=== PATIENT | female | born 1950 | race Hispanic/Latino ===

== ENCOUNTER 2017-07-05 19:42 | Emergency (ER) | payer OTHER, MEDICARE ==
[~2017-07-05 19:42] MED LIST: ATOR10 PO; CALC-877 PO; FLUT16H NASAL; FURO40TA5 PO; HYDR-3421 PO; HYOS-14 PO; INSLAN SQ; ISOS40TA16 PO; LACT10SO PO; PROP20TA7 PO; RIFA500P3 MC; SPIR100T5 PO
[2017-07-05 20:02] LABS: BASOPHILS % (AUTO) 1.1 % (0.0-5.0); EOSINOPHILS % (AUTO) 4.6 % (0.0-8.0); HEMATOCRIT 29.3 % (36-48); LYMPHOCYTES % (AUTO) 11.4 % (21.0-51.0); MEAN CORPUSCULAR HEMOGLOBIN 28.6 pg (27.0-33.0); MEAN CORPUSCULAR HGB CONC 32.8 g/dL (32.0-36.0); MEAN CORPUSCULAR VOLUME 87.3 fL (79-99); MONOCYTES % (AUTO) 9.5 % (3.0-13.0); NEUTROPHILS % (AUTO) 73.4 % (40.0-77.0); PLATELET COUNT (AUTO) 111 K/uL (130-400); RED BLOOD CELL COUNT(AUTO) 3.36 MIL/uL (4.00-5.50); RED CELL DISTRIBUTION WIDTH 17.6 % (11.0-15.5); WHITE BLOOD COUNT (AUTO) 4.1 K/uL (4.8-10.8)
[2017-07-05 20:10] LABS: CREATININE 1.5 mg/dL (0.5-1.5); POTASSIUM 4.9 mmol/L (3.5-5.1)
[2017-07-05 20:13] LABS: BILIRUBIN,TOTAL 0.6 mg/dL (0.2-1.0); TOTAL PROTEIN, SERUM 6.3 g/dL (6.0-8.3)
[2017-07-05 20:42] LABS: CREATINE KINASE MB 0.7 ng/mL (0.5-3.6)
[2017-07-05 21:50] LABS: APPEARANCE,URINE Clear (CLEAR); BILIRUBIN,URINE Negative (NEGATIVE); COLOR,URINE Yellow (YELLOW); GLUCOSE, URINE (UA) Negative (NEGATIVE); KETONES,URINE Negative (NEGATIVE); LEUKOCYTE ESTERASE ,URINE Negative (NEGATIVE); NITRATE,URINE Positive (NEGATIVE); OCCULT BLOOD,URINE Negative (NEGATIVE); PROTEIN,URINE Trace (NEGATIVE); UROBILINOGEN,URINE 0.2 mg/dL (0.2-1.0)
[2017-07-05 21:59] LABS: BACTERIA,URINE Moderate /HPF (None Seen); RBC,URINE 0-1 /HPF (0-1); SQUAMOUS EPITHELIAL CELL,UR Few /HPF (0-2); YEAST,URINE BUDDING Rare /HPF (None Seen)
[2017-07-05] MEDS ORDERED: CEFTRIAXONE SODIUM 1 GM ONE (22:08)
[2017-08-24] MEDS ORDERED: CETI-101 PO (12:01)
[2017-08-24] MEDS ORDERED: FLUT1AER IH (12:01)
[2017-08-24] MEDS ORDERED: RAMI5CAP21 PO (12:01)
[2017-08-24] MEDS ORDERED: IRON50VI3 IJ (12:01)
[2017-08-24] MEDS ORDERED: PRED20TA3 PO (12:01)
== END 2017-07-05 22:28 | disposition home or self-care (01) ==
LOC: EDH 19:42
DX: N39.0 Urinary tract infection, site not specified (principal); K74.69 Other cirrhosis of liver; E11.9 Type 2 diabetes mellitus without complications; R18.8 Other ascites; I10 Essential (primary) hypertension; M19.90 Unspecified osteoarthritis, unspecified site; Z88.2 Allergy status to sulfonamides; Z91.041 Radiographic dye allergy status; Z88.8 Allergy status to other drugs, medicaments and biological substances
CPT/HCPCS: 36415; 76705; 80053; 81001; 82150; 82550; 82553; 83690; 84484; 85025; 87088; 87186; 93005; 96374; 99285; J0696

== ENCOUNTER → 2017-07-28 | Outpatient (CLI) | payer OTHER, MEDICARE ==
[~2017-07-28] MED LIST changes: +CETI-101 PO; +FLUT1AER IH; +IRON50VI3 IJ; +PRED20TA3 PO; +RAMI5CAP21 PO
[2017-08-01 14:30] LABS: ALPHA-1-ANTITRYPSIN 132 mg/dL (90-200)
== END | disposition home or self-care (01) ==
LOC: RAH 09:37
PROVIDERS: ATTEND Internal Medicine Gastroenterology
DX: K80.20 Calculus of gallbladder without cholecystitis without obstruction (principal); K74.60 Unspecified cirrhosis of liver; E87.5 Hyperkalemia; R94.5 Abnormal results of liver function studies
CPT/HCPCS: 36415; 76700; 82103; 82104; 84132; 86038; 86215; 86235; 86255; 93975

== ENCOUNTER 2017-09-21 09:46 | Emergency (ER) | payer OTHER, MEDICARE ==
[~2017-09-21 09:46] MED LIST changes: -ATOR10 PO; -ISOS40TA16 PO; -PROP20TA7 PO
[2017-09-21] MEDS ORDERED: SODIUM CHLORIDE 0.9% 1000ML 1,000 ML IV ONE (09:59)
[2017-09-21] MEDS ORDERED: ONDANSETRON HCL 4 MG/2 ML VIAL ONE (09:59)
[2017-09-21 10:06] LABS: BASOPHILS % (AUTO) 0.8 % (0.0-5.0); EOSINOPHILS % (AUTO) 4.1 % (0.0-8.0); HEMATOCRIT 28.6 % (36-48); LYMPHOCYTES % (AUTO) 10.4 % (21.0-51.0); MEAN CORPUSCULAR HEMOGLOBIN 29.5 pg (27.0-33.0); MEAN CORPUSCULAR HGB CONC 33.7 g/dL (32.0-36.0); MEAN CORPUSCULAR VOLUME 87.7 fL (79-99); MONOCYTES % (AUTO) 8.5 % (3.0-13.0); NEUTROPHILS % (AUTO) 76.2 % (40.0-77.0); PLATELET COUNT (AUTO) 94 K/uL (130-400); RED BLOOD CELL COUNT(AUTO) 3.27 MIL/uL (4.00-5.50); RED CELL DISTRIBUTION WIDTH 17.3 % (11.0-15.5)
[2017-09-21 10:13] LABS: CREATININE 1.3 mg/dL (0.5-1.5); POTASSIUM 4.9 mmol/L (3.5-5.1)
[2017-09-21 10:33] LABS: ALBUMIN 3.1 g/dL (3.5-5.0); BILIRUBIN,TOTAL 0.9 mg/dL (0.2-1.0); TOTAL PROTEIN, SERUM 6.1 g/dL (6.0-8.3)
[2017-09-21 10:35] LABS: INR 1.07 (0.85-1.15); PARTIAL THROMBOPLASTIN TIME 26.6 SEC (26.3-35.5); PROTHROMBIN TIME 11.2 SEC (9.6-11.6)
[2017-09-21 10:41] LABS: CREATINE KINASE MB 0.8 ng/mL (0.5-3.6); CREATINE KINASE, TOTAL 42 U/L (21-232); MYOGLOBIN 55 ng/mL (10-92); TROPONIN I < 0.04 ng/mL (0.00-0.06)
[2017-09-21 11:01] LABS: BAND NEUTROPHILS % (MANUAL) 1 % (0-2); BASOPHILS % (MANUAL) 3 % (0-2); EOSINOPHILS % (MANUAL) 6 % (1-6); LYMPHOCYTES % (MANUAL) 9 % (22-44); MAN.DIFF COMMENT-IMPRESSION MANUAL DIFFERENTIAL; MONOCYTES % (MANUAL) 1 % (2-9); SEGMENTED NEUTROPHILS % 80 % (40-70)
[2017-09-21 11:02] LABS: PLATELET MORPHOLOGY COMMENT DECREASED
[2017-09-21 11:43] LABS: APPEARANCE,URINE Clear (CLEAR); BILIRUBIN,URINE Negative (NEGATIVE); COLOR,URINE Yellow (YELLOW); GLUCOSE, URINE (UA) Negative (NEGATIVE); KETONES,URINE Negative (NEGATIVE); LEUKOCYTE ESTERASE ,URINE Negative (NEGATIVE); NITRATE,URINE Negative (NEGATIVE); OCCULT BLOOD,URINE Trace (NEGATIVE); PROTEIN,URINE POS 1+ (NEGATIVE); UROBILINOGEN,URINE 0.2 mg/dL (0.2-1.0)
[2017-09-21 11:58] LABS: RBC,URINE 0-1 /HPF (0-1)
[2017-09-21 11:59] LABS: BACTERIA,URINE Rare /HPF (None Seen); WBC,URINE 0-1 /HPF (0-1)
[2017-09-21 12:01] LABS: SQUAMOUS EPITHELIAL CELL,UR Few /HPF (0-2)
[2017-09-21] MEDS ORDERED: METOCLOPRAMIDE 10 MG/2 ML VIAL ONE (12:17)
== END 2017-09-21 13:22 | disposition home or self-care (01) ==
LOC: EDH 09:46
DX: R51 Headache (principal); E86.0 Dehydration; M19.90 Unspecified osteoarthritis, unspecified site; K74.60 Unspecified cirrhosis of liver; E11.9 Type 2 diabetes mellitus without complications; M79.7 Fibromyalgia; I10 Essential (primary) hypertension; Z88.2 Allergy status to sulfonamides; Z88.8 Allergy status to other drugs, medicaments and biological substances
CPT/HCPCS: 36415; 70450; 71045; 80053; 81001; 82140; 82550; 82553; 83874; 84484; 85025; 85610; 85730; 93005; 96361; 96374; 96375; 99285; J2405; J2765; J7030

== ENCOUNTER → 2018-11-30 | Outpatient (CLI) | payer OTHER, MEDICARE ==
[~2018-11-30] MED LIST changes: -RAMI5CAP21 PO; +RAMI5CAP66 PO
== END | disposition home or self-care (01) ==
LOC: OIH 14:54
PROVIDERS: ATTEND Internal Medicine
DX: M47.817 Spondylosis without myelopathy or radiculopathy, lumbosacral region (principal); G95.9 Disease of spinal cord, unspecified; M41.9 Scoliosis, unspecified
CPT/HCPCS: 72100

== ENCOUNTER 2019-01-14 14:58 | Observation (INO) | payer OTHER, MEDICARE ==
[~2019-01-14] VITALS: Ht 149.9 cm; Wt 79.0 kg
[2019-01-14] MEDS ORDERED: DIATR MEGLU/DIATRIZOATE SODIUM 30 ML BOTTLE ONE (15:49)
[2019-01-14] MEDS ORDERED: 1/2 NORMAL SALINE 1,000 ML IV ONE (15:57)
[2019-01-14 16:01] LABS: BASOPHILS % (AUTO) 0.8 % (0.0-5.0); EOSINOPHILS % (AUTO) 1.4 % (0.0-8.0); HEMATOCRIT 27.3 % (36-48); LYMPHOCYTES % (AUTO) 5.7 % (21.0-51.0); MEAN CORPUSCULAR HEMOGLOBIN 30.1 pg (27.0-33.0); MEAN CORPUSCULAR HGB CONC 33.4 g/dL (32.0-36.0); MEAN CORPUSCULAR VOLUME 90.1 fL (79-99); MONOCYTES % (AUTO) 1.7 % (3.0-13.0); NEUTROPHILS % (AUTO) 90.4 % (40.0-77.0); PLATELET COUNT (AUTO) 101 K/uL (130-400); RED BLOOD CELL COUNT(AUTO) 3.03 MIL/uL (4.00-5.50); RED CELL DISTRIBUTION WIDTH 19.5 % (11.0-15.5); WHITE BLOOD COUNT (AUTO) 2.2 K/uL (4.8-10.8)
[2019-01-14 16:16] LABS: CREATININE 2.3 mg/dL (0.5-1.5); POTASSIUM 5.5 mmol/L (3.5-5.1)
[2019-01-14 16:19] LABS: BILIRUBIN,TOTAL 0.8 mg/dL (0.2-1.0); TOTAL PROTEIN, SERUM 5.9 g/dL (6.0-8.3)
[2019-01-14 16:21] LABS: AMMONIA 44 umol/L (11-32); CREATINE KINASE, TOTAL 87 U/L (21-232); MYOGLOBIN 96 ng/mL (10-92); TROPONIN I < 0.04 ng/mL (0.00-0.06)
[2019-01-14 16:30] LABS: B-TYPE NATRIURETIC PEPTIDE 115 pg/mL (0-100)
[2019-01-14 16:40] VITALS: BP 160/81
--- NOTE | 2019-01-14 17:05 | NUR ---
DR KNOWLES PAGED DR KNOWLES PAGED REGARDING PT LABS LEVELS AND PRESCHEDULED PARACENTESIS FOR 01/15. PENDING CALL BACK
--- NOTE | 2019-01-14 17:13 | NUR ---
DR JOHNSON CONSULTED DR JOHNSON CONSULTED PER DR KNOWLES ORDER. STATED SHE WILL REVIEW CHART AND SEE PT TOMORROW
[2019-01-14 17:37] LABS: BAND NEUTROPHILS % (MANUAL) 6 % (0-2); LYMPHOCYTES % (MANUAL) 9 % (22-44); SEGMENTED NEUTROPHILS % 85 % (40-70)
[2019-01-14 17:38] LABS: MAN.DIFF COMMENT-IMPRESSION MANUAL DIFFERENTIAL
[2019-01-14 17:39] LABS: PLATELET MORPHOLOGY COMMENT SLIGHTLY DECREASED
[2019-01-14] MEDS: 1/2 NORMAL SALINE 1,000 ML IV SCH (18:15)
[2019-01-14] MEDS ORDERED: LIDOCAINE HCL-MPF 1% 2ML VIAL IV PRN (18:15)
[2019-01-14] MEDS ORDERED: POTASSIUM CHLORIDE 10% ELIXIR 20 MEQ/15 ML UDCUP PO PRN (18:15)
[2019-01-14] MEDS ORDERED: CLONIDINE HCL 0.1 MG TABLET PO PRN (18:15)
[2019-01-14] MEDS ORDERED: DiphenhydrAMINE HCL 50 MG/ML VIAL IV PRN (18:15)
[2019-01-14] MEDS ORDERED: GLUCAGON 1MG KIT 1 MG ML IM PRN (18:15)
[2019-01-14] MEDS ORDERED: DEXTROSE 50%-WATER 50 ML DISP.SYRIN IV PRN (18:15)
[2019-01-14] MEDS ORDERED: POTASSIUM CHLORIDE 20MEQ/100ML 100 ML IV PRN (18:15)
[2019-01-14 18:44] LABS: ERYTHROCYTE SEDIMENTATION RATE 14 MM/HR (0-30)
[2019-01-14] MEDS ORDERED: ZOSYN 3.375GM+NS 50ML 50 ML IV SCH (19:00)
[2019-01-14] MEDS ORDERED: VANCOMYCIN PROTOCOL PER PHARMACY IV SCH (19:15)
[2019-01-14] MEDS ORDERED: CALC3.8S NS (19:30)
[2019-01-14] MEDS ORDERED: CALC-28 PO (19:30)
[2019-01-14] MEDS ORDERED: FURO40TA5 PO (19:30)
[2019-01-14] MEDS ORDERED: ALEN70TA10 PO (19:30)
[2019-01-14] MEDS ORDERED: RAMI5CAP66 PO (19:30)
[2019-01-14] MEDS ORDERED: FLUT16H NASAL (19:30)
[2019-01-14] MEDS ORDERED: IBUP-2070 PO (19:30)
[2019-01-14] MEDS ORDERED: OMEP40CA13 PO (19:30)
[2019-01-14] MEDS ORDERED: RIFA550T PO (19:30)
[2019-01-14] MEDS ORDERED: ERGO500014 PO (19:30)
[2019-01-14] MEDS ORDERED: BENZ-51 PO (19:30)
[2019-01-14] MEDS ORDERED: CETI10TA57 PO (19:30)
[2019-01-14] MEDS ORDERED: SPIR50TA5 PO (19:30)
[2019-01-14] MEDS ORDERED: MONT10TA24 PO (19:30)
[2019-01-14 20:04] VITALS: BP 165/78
[2019-01-14] MEDS: LACTULOSE 20 GM/30 ML UDCUP PO SCH (21:03)
[2019-01-14] MEDS ORDERED: VANCOMYCIN 1GM+NS 250ML 250 ML IV ONE (23:00)
[2019-01-14 23:30] VITALS: BP 160/78
[2019-01-15 03:50] VITALS: BP 131/76
[2019-01-15 04:59] LABS: HEMATOCRIT 24.9 % (36-48); MEAN CORPUSCULAR HEMOGLOBIN 30.9 pg (27.0-33.0); MEAN CORPUSCULAR HGB CONC 34.1 g/dL (32.0-36.0); MEAN CORPUSCULAR VOLUME 90.8 fL (79-99); NUCLEATED RED BLOOD CELLS 0.1 % (0.0-0.19); PLATELET COUNT (AUTO) 85 K/uL (130-400); RED BLOOD CELL COUNT(AUTO) 2.74 MIL/uL (4.00-5.50); RED CELL DISTRIBUTION WIDTH 19.2 % (11.0-15.5); WHITE BLOOD COUNT (AUTO) 2.1 K/uL (4.8-10.8)
--- NOTE | 2019-01-15 06:00 | NUR ---
Dr. Grossman rounded: Seen and examined pt with the ff: orders: 1. Paracentesis via IR 2. Do Fluid test and cell count 3. 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 Pt. to see [facility] as an out-patient 5. 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 Reported to AM nurse accordingly.
[2019-01-15 06:05] LABS: ALBUMIN 2.9 g/dL (3.5-5.0); BILIRUBIN,DIRECT 0.3 mg/dL (0.0-0.3); BILIRUBIN,TOTAL 0.8 mg/dL (0.2-1.0); POTASSIUM 5.6 mmol/L (3.5-5.1); TOTAL PROTEIN, SERUM 5.5 g/dL (6.0-8.3)
[2019-01-15] MEDS: 1/2 NORMAL SALINE 1,000 ML IV SCH (06:34)
[2019-01-15 08:05] VITALS: BP 142/68
[2019-01-15] MEDS: LACTULOSE 20 GM/30 ML UDCUP PO SCH (08:55)
[2019-01-15] MEDS ORDERED: FUROSEMIDE 10 MG/ML 4ML VIAL IV SCH (09:00)
[2019-01-15] MEDS ORDERED: PANTOPRAZOLE SODIUM 40 MG TABLET.DR PO SCH (09:00)
[2019-01-15] MEDS ORDERED: VANCOMYCIN 500MG+NS 100ML 100 ML IV SCH (10:00)
[2019-01-15 12:00] VITALS: BP 141/69
--- NOTE | 2019-01-15 12:30 | NUR ---
U/S GD PARACENTESIS PROCEDURE PERFORMED BY DR Rafael LITTLE. PUNCTURE SITE RLQ AND PATIENT TOLERATED PROCEDURE WELL. TOTAL REMOVED 3.8 LITERS OF CLODY YELLOW FLUID. END OF PROCEDURE AT 1215. CATHETER REMOVED AND DRESSING APPLIED. NO BLEEDING NOTED. REPORT GIVEN TO George TRUJILLO LVN AND PATIENT TRANSPORTED TO [facility] VIA W/C AT 1230. AAO X3 WITH NO C/O PAIN. SPECIMEN SENT TO LAB.
[2019-01-15 14:15] LABS: SPECIMENTYPE,BODY FLUID ASCITES
[2019-01-15 14:16] LABS: APPEARANCE BODY FLUID CLEAR (CLEAR); BODY FLUID WBC 89 /cu. mm.; COLOR,BODY FLUID LT YELLOW (LT YELLOW); TOTAL VOLUME,BODY FLUID 3800 mL
[2019-01-15 14:18] LABS: BODY FLUID RBC 88 /cu. mm.
[2019-01-15 14:23] LABS: BF LYMPHOCYTE 3 %; BF MESOTHELIAL 34 %
--- NOTE | 2019-01-15 15:00 | NUR ---
DISCHARGE INSTRUCTIONS GIVEN. ALL QUESTIONS ANSWERED . IV DISCONTINUE WITH INNER CANNULA INTACT. PATIENT TO FOLLOW UP WITH DR. KNOWLES TOMORROW.
[2019-01-18] MEDS ORDERED: BENZ-51 PO (14:05)
[2019-01-18] MEDS ORDERED: ALEN70TA10 PO (14:05)
[2019-01-18] MEDS ORDERED: PRED20TA3 PO (14:05)
[2019-01-18] MEDS ORDERED: CALC-1048 PO (14:05)
[2019-01-18] MEDS ORDERED: MONT10TA24 PO (14:05)
== END 2019-01-15 14:30 | disposition home or self-care (01) ==
LOC: EDH 14:58 → EDHIP 15:22 → 3BH 16:32
PROVIDERS: ADMIT Internal Medicine; ATTEND Internal Medicine
DX: R10.84 Generalized abdominal pain (principal); R18.8 Other ascites; L51.1 Stevens-Johnson syndrome; L27.0 Generalized skin eruption due to drugs and medicaments taken internally; I12.9 Hypertensive chronic kidney disease with stage 1 through stage 4 chronic kidney disease, or unspecified chronic kidney disease; E11.22 Type 2 diabetes mellitus with diabetic chronic kidney disease; N18.3 Chronic kidney disease, stage 3 (moderate); K74.60 Unspecified cirrhosis of liver; E78.5 Hyperlipidemia, unspecified; K72.90 Hepatic failure, unspecified without coma; N17.9 Acute kidney failure, unspecified; M19.90 Unspecified osteoarthritis, unspecified site; M79.7 Fibromyalgia
CPT/HCPCS: 36415 ×2; 49083; 71045; 74176; 80048; 80053; 80076; 82140 ×2; 82550; 82948 ×4; 83605; 83874; 83880; 84484; 85025; 85027; 85651; 87040 ×2; 87071; 87205; 88108; 88305; 89051 ×2; 96365; 96366 ×2; 96368; 96375; 99284; A4215; G0378 ×24; J1940; J2543; J3370; Q9963; 96367

== ENCOUNTER 2019-01-21 06:21 | Day surgery (SDC) | payer OTHER, MEDICARE ==
[~2019-01-21] VITALS: Ht 149.9 cm; Wt 78.0 kg
[~2019-01-21 06:21] MED LIST changes: +ALEN70TA10 PO; +BENZ-51 PO; +CALC-1048 PO; -CALC-877 PO; -CETI-101 PO; +CETI10TA57 PO; +ERGO500014 PO; -FLUT1AER IH; -HYDR-3421 PO; -HYOS-14 PO; +IBUP-2070 PO; -INSLAN SQ; -IRON50VI3 IJ; -LACT10SO PO; +MONT10TA24 PO; +OMEP40CA13 PO; -RIFA500P3 MC; +RIFA550T PO; +SODIUM CHLORIDE 0.9% 1000ML 1,000 ML IV ONE; -SPIR100T5 PO; +SPIR50TA5 PO
[2019-01-21 07:32] VITALS: BP 145/68
[2019-01-21] MEDS ORDERED: PROPOFOL 10 MG/ML 20ML VIAL IV ONE (07:42)
[2019-01-21] MEDS ORDERED: INSLAN SQ (07:51)
[2019-01-21] MEDS ORDERED: SODI15OR11 PO (07:51)
[2019-01-21] MEDS ORDERED: FLUT1AER IH (07:51)
[2019-01-21] MEDS ORDERED: CALC3.8S NS (07:51)
[2019-01-21] MEDS ORDERED: HYDR-3421 PO (07:51)
[2019-01-21] MEDS ORDERED: ATORVASTATIN (07:51)
[2019-01-21] MEDS ORDERED: ACET1TAB12 PO (07:51)
[2019-01-21 08:30] VITALS: BP 136/68
[2019-01-21 08:35] VITALS: BP 124/52
[2019-01-21 08:40] VITALS: BP 121/51
[2019-01-21 08:45] VITALS: BP 136/62
[2019-01-21 08:50] VITALS: BP 132/38
== END 2019-01-21 09:05 | disposition home or self-care (01) ==
LOC: DAH 06:21 → ENDO 06:21
PROVIDERS: ATTEND Internal Medicine Gastroenterology
DX: K74.60 Unspecified cirrhosis of liver (principal); I85.10 Secondary esophageal varices without bleeding; K29.50 Unspecified chronic gastritis without bleeding; K76.6 Portal hypertension; K31.89 Other diseases of stomach and duodenum; I10 Essential (primary) hypertension; E78.00 Pure hypercholesterolemia, unspecified; K80.20 Calculus of gallbladder without cholecystitis without obstruction; F41.9 Anxiety disorder, unspecified; F32.9 Major depressive disorder, single episode, unspecified; D50.9 Iron deficiency anemia, unspecified; Z88.1 Allergy status to other antibiotic agents; Z88.8 Allergy status to other drugs, medicaments and biological substances; Z88.2 Allergy status to sulfonamides; Z88.0 Allergy status to penicillin; Z86.010 Personal history of colon polyps; Z90.710 Acquired absence of both cervix and uterus; Z79.899 Other long term (current) drug therapy; Z98.890 Other specified postprocedural states; Z79.4 Long term (current) use of insulin; Z82.3 Family history of stroke; Z82.49 Family history of ischemic heart disease and other diseases of the circulatory system; Z83.3 Family history of diabetes mellitus
CPT/HCPCS: 43239; 82948 ×2; 88305; J2704; J7030

== ENCOUNTER 2019-11-19 14:36 | Observation (INO) | payer OTHER, MEDICARE ==
[~2019-11-19] VITALS: Ht 149.9 cm; Wt 76.7 kg
[~2019-11-19 14:36] MED LIST changes: +ACET1TAB12 PO; +ATORVASTATIN; +CALC3.8S NS; +FLUT1AER IH; +HYDR-3421 PO; +INSLAN SQ; -MONT10TA24 PO; +MONT10TA26 PO; +SODI15OR11 PO; -SODIUM CHLORIDE 0.9% 1000ML 1,000 ML IV ONE
[2019-11-19 15:37] LABS: BASOPHILS % (AUTO) 1.1 % (0.0-5.0); EOSINOPHILS % (AUTO) 6.6 % (0.0-8.0); HEMATOCRIT 32.7 % (36-48); LYMPHOCYTES % (AUTO) 13.3 % (21.0-51.0); MEAN CORPUSCULAR HGB CONC 32.1 g/dL (32.0-36.0); MEAN CORPUSCULAR VOLUME 102.8 fL (79-99); MONOCYTES % (AUTO) 9.8 % (3.0-13.0); NEUTROPHILS % (AUTO) 68.9 % (40.0-77.0); PLATELET COUNT (AUTO) 99 K/uL (130-400); RED BLOOD CELL COUNT(AUTO) 3.18 MIL/uL (4.00-5.50); RED CELL DISTRIBUTION WIDTH 15.3 % (11.0-15.5); WHITE BLOOD COUNT (AUTO) 3.8 K/uL (4.8-10.8)
[2019-11-19 15:58] LABS: BILIRUBIN,TOTAL 1.1 mg/dL (0.2-1.0); CREATININE 1.6 mg/dL (0.5-1.5); TOTAL PROTEIN, SERUM 5.9 g/dL (6.0-8.3)
[2019-11-19 16:10] LABS: POTASSIUM 6.4 mmol/L (3.5-5.1)
[2019-11-19 16:54] LABS: BILIRUBIN,URINE Negative (NEGATIVE); COLOR,URINE Yellow (YELLOW); GLUCOSE, URINE (UA) Negative (NEGATIVE); KETONES,URINE Negative (NEGATIVE); LEUKOCYTE ESTERASE ,URINE Small (NEGATIVE); NITRATE,URINE Positive (NEGATIVE); OCCULT BLOOD,URINE Negative (NEGATIVE); PROTEIN,URINE Negative (NEGATIVE)
[2019-11-19 17:05] LABS: APPEARANCE,URINE SLIGHTLY CLOUDY (CLEAR)
[2019-11-19 17:29] LABS: BACTERIA,URINE Many /HPF (None Seen); RBC,URINE None Seen /HPF (0-1)
[2019-11-19] MEDS ORDERED: CALCIUM GLUCONATE 1 GM/10 ML VIAL IV ONE (18:05)
[2019-11-19] MEDS ORDERED: CEFTRIAXONE SODIUM 1 GM ONE (18:06)
[2019-11-19] MEDS ORDERED: SODIUM BICARB 50MEQ 50ML VIAL ONE (18:06)
[2019-11-19] MEDS ORDERED: DEXTROSE 50%-WATER 50 ML DISP.SYRIN IV ONE (18:06)
[2019-11-19] MEDS ORDERED: INSULIN HUMULIN R 100 UNIT/ML 3ML ONE (18:07)
[2019-11-19] MEDS ORDERED: SODIUM POLYSTYRENE SULFONATE 15 GM/60 ML ML ONE ×2 (18:49→22:30)
[2019-11-19 22:18] LABS: CREATININE 1.7 mg/dL (0.5-1.5); POTASSIUM 5.6 mmol/L (3.5-5.1)
[2019-11-19 23:05] VITALS: BP 179/65
[2019-11-19] MEDS ORDERED: SODIUM POLYSTYRENE SULFONATE 15 GM/60 ML ML PO NR (23:45)
[2019-11-20 04:00] VITALS: BP 125/59
[2019-11-20 08:00] VITALS: BP 130/73
--- NOTE | 2019-11-20 10:29 | NUR ---
PT STATED UNDERSTANDING OF ALL D/C INSTRUCTIONS GIVEN FOR URINARY TRACT INFECTION AND HYPERKALEMIA AND TO MAKE SURE SHE TAKES ALL OF HER MACROBID FOR INFECTION TREATMENT. SHE IS TO F/U WITH DR MULLINS FOR POTASSIUM MANAGEMENT; IV ACCESS REMOVED, TELE BOX REMOVED; I HAVE ALSO SPOKEN TO HER SON YANELI ON THE PHONE AND UPDATED HIM ON D/C INSTRUCTIONS, SCRIPT AND F/U APPOINTMENTS; ALL STATE UNDERSTANDING OF INSTRUCTIONS.
--- NOTE | 2019-11-20 17:53 | NUR ---
DISCHARGED PRIOR TO CM ASSESSMENT. NO TRIGGERS Addendum: 11/20/19 at 2664 by NEFTALI BRIZUELA RN CM Amended: Links added.
== END 2019-11-20 10:30 | disposition home or self-care (01) ==
LOC: EDH 14:36 → EDHIP 18:22 → 3BH 21:52
PROVIDERS: ADMIT Internal Medicine; ATTEND Internal Medicine
DX: N39.0 Urinary tract infection, site not specified (principal); E87.5 Hyperkalemia; K74.60 Unspecified cirrhosis of liver; E11.9 Type 2 diabetes mellitus without complications; I10 Essential (primary) hypertension; Z90.710 Acquired absence of both cervix and uterus; Z90.49 Acquired absence of other specified parts of digestive tract; Z88.2 Allergy status to sulfonamides; Z91.041 Radiographic dye allergy status; Z79.899 Other long term (current) drug therapy
CPT/HCPCS: 36415; 74176; 80048; 80053; 81001; 83690; 84132; 84484; 85025; 87077; 87088; 87186; 93005; 99291; G0378 ×7; J0610; J0696; J1815; J3490; J7070

== ENCOUNTER 2020-01-10 13:43 | Observation (INO) | payer OTHER, MEDICARE ==
[~2020-01-10 13:43] MED LIST changes: -ALEN70TA10 PO; +ALEN70TA69 PO
[2020-01-10 14:08] LABS: EOSINOPHILS % (AUTO) 7.9 % (0.0-8.0); HEMATOCRIT 31.7 % (36-48); LYMPHOCYTES % (AUTO) 16.1 % (21.0-51.0); MEAN CORPUSCULAR HEMOGLOBIN 32.6 pg (27.0-33.0); MEAN CORPUSCULAR HGB CONC 33.1 g/dL (32.0-36.0); MEAN CORPUSCULAR VOLUME 98.4 fL (79-99); MONOCYTES % (AUTO) 8.2 % (3.0-13.0); NEUTROPHILS % (AUTO) 66.5 % (40.0-77.0); PLATELET COUNT (AUTO) 92 K/uL (130-400); RED BLOOD CELL COUNT(AUTO) 3.22 MIL/uL (4.00-5.50); RED CELL DISTRIBUTION WIDTH 14.9 % (11.0-15.5)
[2020-01-10 14:17] LABS: CREATININE 1.7 mg/dL (0.5-1.5); POTASSIUM 4.8 mmol/L (3.5-5.1)
[2020-01-10 14:19] LABS: INR 1.06 (0.85-1.15); PARTIAL THROMBOPLASTIN TIME 28.3 SEC (26.3-35.5); PROTHROMBIN TIME 11.4 SEC (9.6-11.6)
[2020-01-10 14:21] LABS: ALBUMIN 2.8 g/dL (3.5-5.0); BILIRUBIN,TOTAL 1.2 mg/dL (0.2-1.0); TOTAL PROTEIN, SERUM 6.2 g/dL (6.0-8.3)
[2020-01-10 14:37] LABS: B-TYPE NATRIURETIC PEPTIDE 272 pg/mL (0-100)
[2020-01-10 14:44] LABS: ABG BASE EXCESS -8.7 mmol/L (-2.0-3.0); ABG OXYGEN SATURATION 96.8 % (95.0-99.0); ABG PCO2 31 mmHg (32-45)
[2020-01-10 14:54] LABS: EOSINOPHILS % (MANUAL) 3 % (1-6); LYMPHOCYTES % (MANUAL) 14 % (22-44); MONOCYTES % (MANUAL) 6 % (2-9); SEGMENTED NEUTROPHILS % 77 % (40-70)
[2020-01-10 14:58] LABS: MAN.DIFF COMMENT-IMPRESSION MANUAL DIFFERENTIAL
[2020-01-10] MEDS ORDERED: LACTULOSE 20 GM/30 ML UDCUP ONE (15:37)
[2020-01-10] MEDS ORDERED: 1/2 NORMAL SALINE 1,000 ML IV SCH (18:00)
[2020-01-10] MEDS ORDERED: LACTULOSE 20 GM/30 ML UDCUP PO SCH (21:00)
== END 2020-01-10 18:30 | disposition left against medical advice (07) ==
LOC: EDH 13:43 → EDHIP 17:20
PROVIDERS: ADMIT Internal Medicine; ATTEND Internal Medicine
DX: G93.41 Metabolic encephalopathy (principal); M79.7 Fibromyalgia; E11.9 Type 2 diabetes mellitus without complications; I10 Essential (primary) hypertension; M06.9 Rheumatoid arthritis, unspecified; M19.90 Unspecified osteoarthritis, unspecified site; Z90.710 Acquired absence of both cervix and uterus; Z79.899 Other long term (current) drug therapy; Z88.2 Allergy status to sulfonamides; Z88.8 Allergy status to other drugs, medicaments and biological substances; Z91.048 Other nonmedicinal substance allergy status
CPT/HCPCS: 36415; 36600; 70450; 71045; 80053; 82140; 82550; 82803; 83880; 84484; 85025; 85610; 85730; 93005; 99285; G0378

== ENCOUNTER 2020-04-07 10:33 | Observation (INO) | payer OTHER, MEDICARE ==
[~2020-04-07] VITALS: Ht 149.9 cm; Wt 75.3 kg
[~2020-04-07 10:33] MED LIST changes: -ALEN70TA69 PO; +ALEN70TA80 PO; -MONT10TA26 PO; +MONT10TA32 PO
[2020-04-07 11:22] LABS: BASOPHILS % (AUTO) 0.2 % (0.0-5.0); EOSINOPHILS % (AUTO) 0.4 % (0.0-8.0); HEMATOCRIT 30.5 % (36-48); LYMPHOCYTES % (AUTO) 1.9 % (21.0-51.0); MEAN CORPUSCULAR HEMOGLOBIN 32.3 pg (27.0-33.0); MEAN CORPUSCULAR HGB CONC 33.4 g/dL (32.0-36.0); MEAN CORPUSCULAR VOLUME 96.5 fL (79-99); MONOCYTES % (AUTO) 3.7 % (3.0-13.0); NEUTROPHILS % (AUTO) 93.2 % (40.0-77.0); PLATELET COUNT (AUTO) 95 K/uL (130-400); RED BLOOD CELL COUNT(AUTO) 3.16 MIL/uL (4.00-5.50); RED CELL DISTRIBUTION WIDTH 14.5 % (11.0-15.5); WHITE BLOOD COUNT (AUTO) 9.9 K/uL (4.8-10.8)
[2020-04-07 11:50] LABS: INR 1.33 (0.85-1.15); PROTHROMBIN TIME 13.9 SEC (9.6-11.6)
[2020-04-07 11:54] LABS: CARBON DIOXIDE 15 mmol/L (21-32); CHLORIDE 102 mmol/L (101-111); CREATININE 2.4 mg/dL (0.5-1.5); GLOMERULAR FILTR. RATE CALC 21 mL/min (>60); GLUCOSE,RANDOM 134 mg/dL (70-105); POTASSIUM 4.7 mmol/L (3.5-5.1); SODIUM SERUM 130 mmol/L (136-145); UREA NITROGEN, BLOOD 57 mg/dL (7-18)
[2020-04-07 12:08] LABS: ALANINE AMINOTRANSFERASE 17 U/L (12-78); ALBUMIN 2.4 g/dL (3.5-5.0); ASPARTATE AMINOTRANSFERASE 25 U/L (10-37); BILIRUBIN,TOTAL 1.6 mg/dL (0.2-1.0); CREATINE KINASE, TOTAL 51 U/L (21-232); MYOGLOBIN 105 ng/mL (10-92); TOTAL PROTEIN, SERUM 5.9 g/dL (6.0-8.3); TROPONIN I < 0.04 ng/mL (0.00-0.06)
[2020-04-07 13:08] LABS: APPEARANCE,URINE CLOUDY (CLEAR); BILIRUBIN,URINE NEGATIVE (NEGATIVE); COLOR,URINE YELLOW (YELLOW); GLUCOSE, URINE (UA) NEGATIVE (NEGATIVE); KETONES,URINE NEGATIVE (NEGATIVE); LEUKOCYTE ESTERASE ,URINE LARGE (NEGATIVE); NITRATE,URINE NEGATIVE (NEGATIVE); OCCULT BLOOD,URINE TRACE-INTACT (NEGATIVE); PH,URINE 5.5 (5.0-8.0); PROTEIN,URINE NEGATIVE (NEGATIVE); UROBILINOGEN,URINE 0.2 mg/dL (0.2-1.0)
[2020-04-07 13:15] LABS: BACTERIA,URINE Many /HPF (None Seen); RBC,URINE 0-1 /HPF (0-1); SQUAMOUS EPITHELIAL CELL,UR Few /HPF (0-2); WBC,URINE TNTC /HPF (0-1)
[2020-04-07] MEDS ORDERED: ALBUMIN (HUMAN) 25% 200 ML IV ONE (14:05)
[2020-04-07] MEDS ORDERED: CEFTRIAXONE SODIUM 1 GM ONE (14:48)
[2020-04-07] MEDS ORDERED: SODIUM CHLORIDE 0.9% 50 ML IV ONE (14:49)
[2020-04-07 16:31] LABS: APPEARANCE BODY FLUID SLIGHTLY CLOUDY (CLEAR); COLOR,BODY FLUID YELLOW (LT YELLOW); SPECIMENTYPE,BODY FLUID ASCITES; TOTAL VOLUME,BODY FLUID 7100 mL
[2020-04-07 16:32] LABS: BODY FLUID RBC 275 /cu. mm.; BODY FLUID WBC 1355 /cu. mm.
[2020-04-07 16:49] LABS: BF LYMPHOCYTE 1 %
[2020-04-07] MEDS ORDERED: LEVOFLOXACIN 750 MG/D5W 150 ML 150 ML ONE (16:54)
[2020-04-07] MEDS ORDERED: ACETAMINOPHEN 325 MG TAB ONE (20:28)
[2020-04-07] MEDS ORDERED: SODIUM CHLORIDE 0.9% 10 ML VIAL IVP PRN (21:15)
[2020-04-08] MEDS ORDERED: DiphenhydrAMINE HCL 50 MG/ML VIAL ONE (02:00)
[2020-04-08] MEDS ORDERED: CEFTRIAXONE SODIUM 2 GM VIAL ONE (06:26)
[2020-04-08 09:00] VITALS: BP 92/63
[2020-04-09] MEDS ORDERED: LEVOFLOXACIN 500 MG/D5W 100 ML 100 ML IV SCH (18:00)
== END 2020-04-08 09:24 | disposition home or self-care (01) ==
LOC: EDH 10:33 → INTOOBSV 16:31 → EDHIP 16:31
PROVIDERS: ADMIT Internal Medicine; ATTEND Internal Medicine
DX: N39.0 Urinary tract infection, site not specified (principal); Z20.828 Contact with and (suspected) exposure to other viral communicable diseases; K65.2 Spontaneous bacterial peritonitis; E11.9 Type 2 diabetes mellitus without complications; I10 Essential (primary) hypertension; F41.9 Anxiety disorder, unspecified; F32.9 Major depressive disorder, single episode, unspecified; M19.90 Unspecified osteoarthritis, unspecified site; M06.9 Rheumatoid arthritis, unspecified; M79.7 Fibromyalgia; Z90.710 Acquired absence of both cervix and uterus; Z79.899 Other long term (current) drug therapy; Z88.2 Allergy status to sulfonamides; Z88.8 Allergy status to other drugs, medicaments and biological substances; Z91.041 Radiographic dye allergy status
CPT/HCPCS: 36415; 49083; 71045; 80053; 81001; 82550; 83605; 83874; 83880; 84145; 84484; 85025; 85378; 85610; 85730; 86140; 86900; 86901; 87040 ×2; 87071; 87077 ×3; 87088; 87186 ×3; 87205; 87426; 87804 ×2; 89051; 93005; 96365; 99285; A4215; G0378 ×16; J0696 ×2; J1200; J1956; P9046; U0003

== ENCOUNTER 2020-09-03 16:24 | Emergency (ER) | payer OTHER, MEDICARE ==
[~2020-09-03] VITALS: Ht 149.9 cm; Wt 61.2 kg
[~2020-09-03 16:24] MED LIST changes: -ACET1TAB12 PO; +AEC81 PO; -ALEN70TA80 PO; -ATORVASTATIN; +ATORVASTATIN PO; -BENZ-51 PO; -CALC-1048 PO; -CALC3.8S NS; -FLUT1AER IH; -FURO40TA5 PO; -HYDR-3421 PO; -IBUP-2070 PO; +MAGN400C PO; -MONT10TA32 PO; +MYCO250C7 PO; -OMEP40CA13 PO; +PANT40TA54 PO; +POLY17PO52 PO; -PRED20TA3 PO; +PREN-196 PO; -RAMI5CAP66 PO; -RIFA550T PO; +SENN-183 PO; -SODI15OR11 PO; -SPIR50TA5 PO; +TACR1CAP10 PO; +TACR5CAP2 PO; +VALG450T3 PO
[2020-09-03 16:35] VITALS: BP 115/49
[2020-09-03] MEDS ORDERED: SODIUM CHLORIDE 0.9% 1000ML 1,000 ML IV SCH (17:30)
[2020-09-03] MEDS ORDERED: CEFTRIAXONE SODIUM 1 GM IVP SCH (18:00)
[2020-09-03 18:17] LABS: BASOPHILS % (AUTO) 0.2 % (0.0-5.0); HEMATOCRIT 24.1 % (36-48); LYMPHOCYTES % (AUTO) 5.2 % (21.0-51.0); MEAN CORPUSCULAR HEMOGLOBIN 30.7 pg (27.0-33.0); MEAN CORPUSCULAR HGB CONC 33.6 g/dL (32.0-36.0); MEAN CORPUSCULAR VOLUME 91.3 fL (79-99); MONOCYTES % (AUTO) 13.9 % (3.0-13.0); NEUTROPHILS % (AUTO) 76.5 % (40.0-77.0); PLATELET COUNT (AUTO) 149 K/uL (130-400); RED BLOOD CELL COUNT(AUTO) 2.64 MIL/uL (4.00-5.50); RED CELL DISTRIBUTION WIDTH 17.5 % (11.0-15.5); WHITE BLOOD COUNT (AUTO) 4.2 K/uL (4.8-10.8)
[2020-09-03 18:21] LABS: APPEARANCE,URINE Cloudy (CLEAR); BILIRUBIN,URINE Negative (NEGATIVE); COLOR,URINE Yellow (YELLOW); GLUCOSE, URINE (UA) 500 mg/dL (NEGATIVE); KETONES,URINE Negative (NEGATIVE); LEUKOCYTE ESTERASE ,URINE Moderate (NEGATIVE); NITRATE,URINE Negative (NEGATIVE); OCCULT BLOOD,URINE Small (NEGATIVE); PROTEIN,URINE Trace mg/dL (NEGATIVE); UROBILINOGEN,URINE 0.2 mg/dL (0.2-1.0)
[2020-09-03 18:30] LABS: CREATININE 1.3 mg/dL (0.5-1.5); POTASSIUM 4.3 mmol/L (3.5-5.1)
[2020-09-03 18:34] LABS: ALBUMIN 2.6 g/dL (3.5-5.0); BILIRUBIN,TOTAL 0.5 mg/dL (0.2-1.0); TOTAL PROTEIN, SERUM 6.6 g/dL (6.0-8.3)
[2020-09-03 18:39] LABS: BACTERIA,URINE Many /HPF (None Seen); MUCUS,URINE Few LPF (None Seen); SQUAMOUS EPITHELIAL CELL,UR 0-2 /HPF (0-2)
[2020-09-03 18:43] LABS: CRP QUANTITATIVE 230.4 mg/L (0.00-9.0)
[2020-09-03] MEDS ORDERED: INSULIN HUMULIN R 100 UNIT/ML 3ML IV STA (19:28)
[2020-09-03 21:06] VITALS: BP 128/59
[2020-09-03] MEDS ORDERED: MACR100 PO (21:22)
== END 2020-09-03 22:20 | disposition home or self-care (01) ==
LOC: EDH 16:24
DX: E86.0 Dehydration (principal); N39.0 Urinary tract infection, site not specified; E87.1 Hypo-osmolality and hyponatremia; D64.9 Anemia, unspecified; Z94.0 Kidney transplant status; Z98.890 Other specified postprocedural states; Z88.0 Allergy status to penicillin; Z88.1 Allergy status to other antibiotic agents; Z88.2 Allergy status to sulfonamides; Z88.8 Allergy status to other drugs, medicaments and biological substances; Z91.041 Radiographic dye allergy status; Z79.82 Long term (current) use of aspirin; Z79.899 Other long term (current) drug therapy
CPT/HCPCS: 36415; 70450; 71045; 80053; 81001; 82948 ×2; 83605; 83690; 85025; 86140; 87077; 87088; 87186; 87426; 87635; 87804 ×2; 87880; 96361; 96374; 96375; 99285; C9803; J0696; J1815; J7030

== ENCOUNTER → 2024-07-17 | Outpatient (CLI) | payer OTHER, MEDICARE ==
[~2024-07-17] MED LIST changes: +MACR100 PO; -SENN-183 PO; +SENN-376 PO; +VALG450T15 PO; -VALG450T3 PO
== END | disposition home or self-care (01) ==
LOC: SHCH 14:33
PROVIDERS: ATTEND Student in an Organized Health Care Education/Training Program
DX: I08.3 Combined rheumatic disorders of mitral, aortic and tricuspid valves (principal); I13.11 Hypertensive heart and chronic kidney disease without heart failure, with stage 5 chronic kidney disease, or end stage renal disease; E11.22 Type 2 diabetes mellitus with diabetic chronic kidney disease; N18.30 Chronic kidney disease, stage 3 unspecified; R06.09 Other forms of dyspnea
CPT/HCPCS: 93306